=== PATIENT | female | born 1965 | race Caucasian/White ===

== ENCOUNTER 2017-01-24 20:42 | Emergency (ER) | payer SELFPAY ==
[~2017-01-24] VITALS: Ht 160 cm; Wt 64.0 kg
[~2017-01-24 20:42] MED LIST: FOLI1 PO; QUET200T PO; TRAZ-147 PO
[2017-01-24 21:03] LABS: BASOPHILS # (AUTO) 0.04 K/uL (0.00-0.20); BASOPHILS % (AUTO) 0.6 % (0.0-2.0); EOSINOPHILS # (AUTO) 0.28 K/uL (0.00-0.70); HEMATOCRIT 34.4 % (36-46); HEMOGLOBIN 11.1 g/dL (12.0-16.0); LYMPHOCYTES % (AUTO) 33.8 % (22.0-44.0); MEAN CORPUSCULAR HEMOGLOBIN 26.1 pg (26.0-34.0); MEAN CORPUSCULAR HGB CONC 32.4 G/dL (31.0-37.0); MEAN CORPUSCULAR VOLUME 81 fL (80-100); MONOCYTES # (AUTO) 0.3 K/uL (0.1-1.0); MONOCYTES % (AUTO) 5.6 % (2.0-9.0); NEUTROPHILS # (AUTO) 3.3 K/uL (1.8-7.7); NEUTROPHILS % (AUTO) 55.2 % (40.0-70.0); PLATELET COUNT (AUTO) 362 K/uL (150-450); RED BLOOD CELL COUNT(AUTO) 4.27 MIL/uL (4.00-5.20); RED CELL DISTRIBUTION WIDTH 16.9 % (11.5-14.5); WHITE BLOOD COUNT (AUTO) 5.9 K/uL (4.5-11.0)
[2017-01-24 21:16] LABS: ANION GAP 8 mmol/L (8-16); CALCIUM, TOTAL 8.5 mg/dL (8.8-10.5); CARBON DIOXIDE 26 mmol/L (22-29); CHLORIDE 108 mmol/L (98-107); CREATININE 0.69 mg/dL (0.60-1.30); GLOMERULAR FILTR. RATE CALC > 60 mL/min (>60); POTASSIUM 3.6 mmol/L (3.5-5.1); SODIUM SERUM 142 mmol/L (136-145); UREA NITROGEN, BLOOD 17 mg/dL (7-18)
[2017-01-24 21:21] LABS: ALANINE AMINOTRANSFERASE 25 U/L (12-78); ASPARTATE AMINOTRANSFERASE 16 U/L (15-37); BILIRUBIN,TOTAL 0.2 mg/dL (0.1-1.0); TOTAL PROTEIN, SERUM 6.9 g/dL (6.4-8.2)
[2017-01-25 03:18] VITALS: BP 110/64
== END 2017-01-25 03:31 | disposition home or self-care (01) ==
LOC: EMS 20:43
DX: F41.9 Anxiety disorder, unspecified (principal); F25.9 Schizoaffective disorder, unspecified; R44.0 Auditory hallucinations; F15.10 Other stimulant abuse, uncomplicated; F17.210 Nicotine dependence, cigarettes, uncomplicated; I10 Essential (primary) hypertension; Z59.0 Homelessness; Z98.84 Bariatric surgery status
CPT/HCPCS: 36415; 80053; 80307; 85025; 99284; 99406; G0480

== ENCOUNTER 2018-07-18 12:13 | Inpatient (IN) | payer MEDICAID ==
[~2018-07-18] VITALS: Ht 154.9 cm; Wt 70.3 kg
[~2018-07-18 12:13] MED LIST changes: -TRAZ-147 PO; +TRAZ-220 PO
[2018-07-18 15:15] LABS: BASOPHILS % (AUTO) 1.1 % (0.0-2.0); EOSINOPHILS % (AUTO) 3.1 % (1.0-6.0); HEMATOCRIT 31.9 % (36-46); HEMOGLOBIN 10.2 g/dL (12.0-16.0); LYMPHOCYTES # (AUTO) 1.8 K/uL (1.0-4.8); LYMPHOCYTES % (AUTO) 23.8 % (22.0-44.0); MEAN CORPUSCULAR HEMOGLOBIN 24.2 pg (26.0-34.0); MEAN CORPUSCULAR VOLUME 76 fL (80-100); MONOCYTES # (AUTO) 0.5 K/uL (0.1-1.0); MONOCYTES % (AUTO) 7.2 % (2.0-9.0); NEUTROPHILS # (AUTO) 4.9 K/uL (1.8-7.7); NEUTROPHILS % (AUTO) 64.8 % (40.0-70.0); PLATELET COUNT (AUTO) 450 K/uL (150-450); RED BLOOD CELL COUNT(AUTO) 4.22 MIL/uL (4.00-5.20)
[2018-07-18 15:18] LABS: ANION GAP 10 mmol/L (8-16); CALCIUM, TOTAL 8.6 mg/dL (8.8-10.5); CARBON DIOXIDE 25 mmol/L (22-29); CHLORIDE 104 mmol/L (98-107); CREATININE 0.75 mg/dL (0.60-1.30); GLOMERULAR FILTR. RATE CALC > 60 mL/min (>60); GLUCOSE,RANDOM 94 mg/dL (70-110); POTASSIUM 3.7 mmol/L (3.5-5.1); SODIUM SERUM 139 mmol/L (136-145); UREA NITROGEN, BLOOD 15 mg/dL (7-18)
[2018-07-18 15:25] LABS: ALANINE AMINOTRANSFERASE 20 U/L (12-78); ALBUMIN 3.5 g/dL (3.4-5.0); ALKALINE PHOSPHATASE 83 U/L (46-116); ASPARTATE AMINOTRANSFERASE 15 U/L (15-37); BILIRUBIN,TOTAL 0.3 mg/dL (0.1-1.0); TOTAL PROTEIN, SERUM 7.4 g/dL (6.4-8.2)
[2018-07-18] MEDS ORDERED: DiphenhydrAMINE HCL 50 MG/ML VIAL IM ONE (15:30)
[2018-07-18] MEDS ORDERED: LORazepam 2 MG/ML VIAL IM ONE (15:30)
[2018-07-18] MEDS ORDERED: HALOPERIDOL LACTATE 5 MG/ML VIAL IM ONE (15:30)
[2018-07-18 15:44] LABS: THYROID STIMULATING HORMONE 1.35 uIU/mL (0.36-3.74)
[2018-07-18] MEDS ORDERED: HALOPERIDOL 5 MG TABLET PO PRN (16:00)
[2018-07-18] MEDS ORDERED: LORazepam 2 MG TABLET PO PRN (16:00)
[2018-07-18 16:24] LABS: PLATELET MORPHOLOGY COMMENT INCREASED
[2018-07-19 08:52] VITALS: BP 133/77
[2018-07-19 09:11] VITALS: BP 133/77
[2018-07-19] MEDS ORDERED: PNEUMOCOCCAL VACCINE POLYVALENT 0.5 ML VIAL [PPSV23] IM ONE (11:30)
[2018-07-19 16:38] VITALS: BP 132/68
[2018-07-19 16:40] VITALS: BP 132/68
[2018-07-19] MEDS: ZOLPIDEM TARTRATE 10 MG TABLET PO PRN (21:09)
[2018-07-19 21:53] VITALS: BP 106/67
[2018-07-20 00:55] VITALS: BP 128/79
[2018-07-20 08:58] LABS: CHOL/HDL RATIO 2.8 (3.9-5.7)
[2018-07-20 09:18] VITALS: BP 120/61
[2018-07-20] MEDS: QUEtiapine FUMARATE 100 MG TABLET PO SCH (11:30)
[2018-07-20 19:51] VITALS: BP 117/74
[2018-07-20] MEDS: TraZODone HCL 100 MG TABLET PO SCH (20:31)
[2018-07-20] MEDS: QUEtiapine FUMARATE 200 MG TABLET PO SCH (20:42)
[2018-07-20] MEDS ORDERED: TraZODone HCL 100 MG TABLET PO SCH (21:00)
[2018-07-21 04:28] VITALS: BP 122/73
[2018-07-21 08:29] VITALS: BP 117/67
[2018-07-21] MEDS: QUEtiapine FUMARATE 100 MG TABLET PO SCH (09:00)
[2018-07-21 16:10] VITALS: BP 128/78
[2018-07-21] MEDS: QUEtiapine FUMARATE 200 MG TABLET PO SCH (20:18)
[2018-07-21] MEDS: ZOLPIDEM TARTRATE 10 MG TABLET PO PRN (20:18)
[2018-07-21] MEDS: TraZODone HCL 100 MG TABLET PO SCH (20:18)
[2018-07-22 03:56] VITALS: BP 114/72
[2018-07-22 08:33] VITALS: BP 136/82
[2018-07-22] MEDS: QUEtiapine FUMARATE 100 MG TABLET PO SCH (08:44)
[2018-07-22] MEDS ORDERED: MAGNESIUM HYDROXIDE SUSPENSION 30 ML UDCUP PO PRN (09:00)
[2018-07-22] MEDS: DOCUSATE SODIUM 100 MG CAPSULE PO SCH ×2 (09:15→17:00)
[2018-07-22] MEDS: OLANZapine 10 MG TABLET PO SCH (16:24)
[2018-07-22 17:11] VITALS: BP 113/66
[2018-07-22] MEDS: TraZODone HCL 100 MG TABLET PO SCH (20:30)
[2018-07-23 00:30] VITALS: BP 126/78
[2018-07-23] MEDS: DOCUSATE SODIUM 100 MG CAPSULE PO SCH (08:36)
[2018-07-23] MEDS: OLANZapine 10 MG TABLET PO SCH (08:36)
[2018-07-23] MEDS ORDERED: DOCU-119 PO (10:35)
[2018-07-23] MEDS ORDERED: OLAN10TA20 PO (10:35)
== END 2018-07-23 13:53 | disposition left against medical advice (07) | DRG 750 ==
LOC: EMS 12:13 → B2S 07-19 06:30 → B3A 07-19 10:56
PROVIDERS: ADMIT Psychiatry & Neurology Psychiatry; ATTEND Psychiatry & Neurology Psychiatry
DX: F25.0 Schizoaffective disorder, bipolar type (principal); Z78.1 Physical restraint status; D64.9 Anemia, unspecified; M54.9 Dorsalgia, unspecified; F17.210 Nicotine dependence, cigarettes, uncomplicated; F15.10 Other stimulant abuse, uncomplicated; R45.87 Impulsiveness; F12.90 Cannabis use, unspecified, uncomplicated; Z82.49 Family history of ischemic heart disease and other diseases of the circulatory system; Z98.84 Bariatric surgery status; Z59.0 Homelessness
CPT/HCPCS: 84443; 96372; 99291; G0480; J1200; J1630; J2060

== ENCOUNTER 2018-10-07 20:19 | Emergency (ER) | payer MEDICAID, OTHER ==
[~2018-10-07] VITALS: Ht 160 cm; Wt 63.0 kg
[~2018-10-07 20:19] MED LIST changes: +DOCU-119 PO; -FOLI1 PO; +OLAN10TA20 PO; -QUET200T PO
[2018-10-07 20:56] LABS: APPEARANCE,URINE CLEAR (CLEAR); BILIRUBIN,URINE NEGATIVE (NEGATIVE); GLUCOSE, URINE (UA) NEGATIVE (NEGATIVE); KETONES,URINE NEGATIVE (NEGATIVE); LEUKOCYTE ESTERASE ,URINE TRACE (NEGATIVE); NITRATE,URINE NEGATIVE (NEGATIVE); OCCULT BLOOD,URINE NEGATIVE (NEGATIVE); PH,URINE 5.5 (5.0-8.0); PROTEIN,URINE NEGATIVE (NEGATIVE)
[2018-10-07 21:02] LABS: AMPHET/METH SCREEN,URINE NEGATIVE (NEGATIVE); BARBITURATE SCREEN, URINE NEGATIVE (NEGATIVE); CANNABINOID SCREEN,URINE NEGATIVE (NEGATIVE); COCAINE SCREEN,URINE NEGATIVE (NEGATIVE); METHADONE SCREEN, URINE NEGATIVE (NEGATIVE); OPIATE SCREEN,URINE NEGATIVE (NEGATIVE)
[2018-10-07 21:03] LABS: PHENCYCLIDINE SCREEN,URINE NEGATIVE (NEGATIVE)
[2018-10-07 21:05] LABS: BACTERIA,URINE None Seen /HPF (None Seen); RBC,URINE None Seen /HPF (0-2); SQUAMOUS EPITHELIAL CELL,UR Rare /LPF (None Seen); WBC,URINE 0-2 /HPF (0-5)
[2018-10-07 21:12] LABS: BENZODIAZEPINES SCREEN,URINE NEGATIVE (NEGATIVE)
[2018-10-07] MEDS: OLANZapine 5 MG TABLET PO ONE (23:05)
[2018-10-07 23:19] VITALS: BP 133/80
== END 2018-10-07 23:35 | disposition home or self-care (01) ==
LOC: EMS 20:20
DX: F20.0 Paranoid schizophrenia (principal); F19.90 Other psychoactive substance use, unspecified, uncomplicated; F32.9 Major depressive disorder, single episode, unspecified; F17.210 Nicotine dependence, cigarettes, uncomplicated; Z59.0 Homelessness
CPT/HCPCS: 99406

== ENCOUNTER 2019-07-18 11:20 | Emergency (ER) | payer MEDICAID, OTHER ==
[~2019-07-18] VITALS: Ht 160 cm; Wt 72.7 kg
[~2019-07-18 11:20] MED LIST changes: -TRAZ-220 PO; +TRAZ-257 PO
[2019-07-18 11:39] LABS: GLUCOSE,POINT OF CARE 124 MG/DL (70-110)
[2019-07-18 12:00] LABS: BASOPHILS % (AUTO) 1.1 % (0.0-2.0); HEMATOCRIT 38.7 % (36-46); HEMOGLOBIN 12.5 g/dL (12.0-16.0); LYMPHOCYTES # (AUTO) 1.4 K/uL (1.0-4.8); LYMPHOCYTES % (AUTO) 16.4 % (22.0-44.0); MEAN CORPUSCULAR HEMOGLOBIN 25.5 pg (26.0-34.0); MEAN CORPUSCULAR HGB CONC 32.4 G/dL (31.0-37.0); MEAN CORPUSCULAR VOLUME 79 fL (80-100); MONOCYTES # (AUTO) 0.5 K/uL (0.1-1.0); MONOCYTES % (AUTO) 5.5 % (2.0-9.0); NEUTROPHILS # (AUTO) 6.5 K/uL (1.8-7.7); PLATELET COUNT (AUTO) 421 K/uL (150-450); RED BLOOD CELL COUNT(AUTO) 4.92 MIL/uL (4.00-5.20); RED CELL DISTRIBUTION WIDTH 15.1 % (11.5-14.5)
[2019-07-18 12:10] LABS: ANION GAP 9 mmol/L (8-16); CALCIUM, TOTAL 9.3 mg/dL (8.8-10.5); CARBON DIOXIDE 26 mmol/L (22-29); CHLORIDE 103 mmol/L (98-107); CREATININE 0.86 mg/dL (0.60-1.30); GLOMERULAR FILTR. RATE CALC > 60 mL/min (>60); GLUCOSE,RANDOM 109 mg/dL (70-110); POTASSIUM 3.9 mmol/L (3.5-5.1); SODIUM SERUM 138 mmol/L (136-145); UREA NITROGEN, BLOOD 18 mg/dL (7-18)
[2019-07-18 12:16] LABS: ALANINE AMINOTRANSFERASE 29 U/L (12-78); ALBUMIN 4.1 g/dL (3.4-5.0); ALKALINE PHOSPHATASE 109 U/L (46-116); ASPARTATE AMINOTRANSFERASE 20 U/L (15-37); BILIRUBIN,TOTAL 0.6 mg/dL (0.1-1.0); TOTAL PROTEIN, SERUM 8.8 g/dL (6.4-8.2)
[2019-07-18 12:42] LABS: HCG,QUANTITATIVE 2 mIU/mL (0-6)
[2019-07-18 13:10] LABS: AMPHET/METH SCREEN,URINE POSITIVE (NEGATIVE); BARBITURATE SCREEN, URINE NEGATIVE (NEGATIVE); BENZODIAZEPINES SCREEN,URINE NEGATIVE (NEGATIVE); CANNABINOID SCREEN,URINE NEGATIVE (NEGATIVE); COCAINE SCREEN,URINE NEGATIVE (NEGATIVE); METHADONE SCREEN, URINE NEGATIVE (NEGATIVE); OPIATE SCREEN,URINE NEGATIVE (NEGATIVE)
[2019-07-18 13:11] LABS: PHENCYCLIDINE SCREEN,URINE NEGATIVE (NEGATIVE)
[2019-07-18] MEDS ORDERED: HALOPERIDOL 5 MG TABLET PO ONE (13:45)
[2019-07-18 14:01] VITALS: BP 147/89
== END 2019-07-18 14:03 | disposition home or self-care (01) ==
LOC: EMS 11:22
DX: F20.9 Schizophrenia, unspecified (principal); F32.9 Major depressive disorder, single episode, unspecified; F15.10 Other stimulant abuse, uncomplicated; F17.210 Nicotine dependence, cigarettes, uncomplicated; Z59.0 Homelessness; Z98.890 Other specified postprocedural states
CPT/HCPCS: 36415; 80053; 80307; 82962; 84702; 85025; 99284; G0480

== ENCOUNTER 2019-10-26 18:38 | Inpatient (IN) | payer MEDICAID ==
[~2019-10-26] VITALS: Ht 154.9 cm; Wt 69.4 kg
[2019-10-26] MEDS ORDERED: BUPR75 PO (19:12)
[2019-10-26] MEDS ORDERED: TRAZ-252 PO (19:12)
[2019-10-26] MEDS ORDERED: ARIP5TAB8 PO (19:12)
[2019-10-26 19:39] VITALS: BP 131/84
[2019-10-26] MEDS ORDERED: INFLUENZA VIRUS VACCINE QVS 2019-20 (3YR+)/PF 60 MCG/0.5 ML SYRINGE IM ONE (20:15)
[2019-10-26] MEDS: LORazepam 2 MG TABLET PO PRN (23:35)
[2019-10-26] MEDS: ZOLPIDEM TARTRATE 10 MG TABLET PO PRN (23:35)
[2019-10-27] VITALS: BP 122/80
[2019-10-27] MEDS ORDERED: PETROLATUM,WHITE 28 GM JELLY TP PRN (05:30)
[2019-10-27] MEDS ORDERED: IBUPROFEN 600 MG TABLET PO PRN (05:30)
[2019-10-27] MEDS ORDERED: ACETAMINOPHEN 325 MG TABLET PO PRN (05:30)
[2019-10-27] MEDS ORDERED: MAGNESIUM HYDROXIDE SUSPENSION 30 ML UDCUP PO PRN (05:30)
[2019-10-27] MEDS ORDERED: ONDANSETRON HCL 4 MG TABLET PO PRN (05:30)
[2019-10-27] MEDS ORDERED: MAG HYDROX/AL HYDROX/SIMETH ES 30 ML SUSPENSION UDCUP PO PRN (05:30)
[2019-10-27] MEDS ORDERED: LOPERAMIDE HCL 2 MG CAPSULE PO PRN (05:30)
[2019-10-27] MEDS ORDERED: BACITRACIN 28.4 GM OINTMENT TP PRN (05:30)
[2019-10-27] MEDS ORDERED: BENZOCAINE/MENTHOL LOZENGE MM PRN (05:30)
[2019-10-27] MEDS ORDERED: ALBUTEROL SULFATE HFA 90 MCG/PUFF 8 GM INHALER IH PRN (05:30)
[2019-10-27] MEDS ORDERED: CloNIDine HCL 0.1 MG TABLET PO PRN (05:30)
[2019-10-27 08:25] LABS: BASOPHILS % (AUTO) 1.1 % (0.0-2.0); HEMATOCRIT 33.6 % (36-46); HEMOGLOBIN 10.8 g/dL (12.0-16.0); LYMPHOCYTES # (AUTO) 1.6 K/uL (1.0-4.8); LYMPHOCYTES % (AUTO) 27.5 % (22.0-44.0); MEAN CORPUSCULAR HEMOGLOBIN 25.1 pg (26.0-34.0); MEAN CORPUSCULAR HGB CONC 32.1 G/dL (31.0-37.0); MEAN CORPUSCULAR VOLUME 78 fL (80-100); MONOCYTES # (AUTO) 0.3 K/uL (0.1-1.0); MONOCYTES % (AUTO) 4.9 % (2.0-9.0); NEUTROPHILS # (AUTO) 3.4 K/uL (1.8-7.7); NEUTROPHILS % (AUTO) 60.5 % (40.0-70.0); PLATELET COUNT (AUTO) 346 K/uL (150-450); RED CELL DISTRIBUTION WIDTH 15.6 % (11.5-14.5)
[2019-10-27 08:31] VITALS: BP 104/66
[2019-10-27] MEDS: DOCUSATE SODIUM 100 MG CAPSULE PO SCH (09:00)
[2019-10-27] MEDS: OMEPRAZOLE 20 MG CAPSULE PO SCH (09:00)
[2019-10-27] MEDS: LORazepam 2 MG TABLET PO PRN ×2 (09:14→20:39)
[2019-10-27] MEDS: HALOPERIDOL 5 MG TABLET PO PRN ×2 (09:14→20:39)
[2019-10-27 09:27] LABS: HEMOGLOBIN A1C 6.2 % (3.8-5.6)
[2019-10-27 09:45] LABS: ALANINE AMINOTRANSFERASE 18 U/L (12-78); ALBUMIN 3.5 g/dL (3.4-5.0); ALKALINE PHOSPHATASE 98 U/L (46-116); ANION GAP 10 mmol/L (8-16); ASPARTATE AMINOTRANSFERASE 13 U/L (15-37); BILIRUBIN,TOTAL 0.4 mg/dL (0.1-1.0); CALCIUM, TOTAL 8.9 mg/dL (8.8-10.5); CARBON DIOXIDE 25 mmol/L (22-29); CHLORIDE 106 mmol/L (98-107); CHOL/HDL RATIO 2.7 (3.9-5.7); CHOLESTEROL 150 mg/dL (131-200); CREATININE 0.85 mg/dL (0.60-1.30); FREE T4 (FREE THYROXINE) 0.99 ng/dL (0.76-1.46); GLOMERULAR FILTR. RATE CALC > 60 mL/min (>60); GLUCOSE,RANDOM 119 mg/dL (70-110); HDL CHOLESTEROL 56 mg/dL (40-60); LDL CHOL (CALC.) 78 mg/dL (0-130); POTASSIUM 4.3 mmol/L (3.5-5.1); SODIUM SERUM 141 mmol/L (136-145); THYROID STIMULATING HORMONE 1.51 uIU/mL (0.36-3.74); TOTAL PROTEIN, SERUM 7.1 g/dL (6.4-8.2); TRIGLYCERIDES 82 mg/dL (15-150); UREA NITROGEN, BLOOD 16 mg/dL (7-18)
[2019-10-27 16:17] VITALS: BP 142/79
[2019-10-27] MEDS: TraZODone HCL 50 MG TABLET PO SCH (20:39)
[2019-10-28] MEDS: ZOLPIDEM TARTRATE 10 MG TABLET PO PRN ×2 (02:34→20:44)
[2019-10-28] MEDS: LORazepam 2 MG TABLET PO PRN ×3 (02:34→16:50)
[2019-10-28 02:35] VITALS: BP 131/83
[2019-10-28 04:21] VITALS: BP 101/84
[2019-10-28] MEDS: BuPROPion HCL 75 MG TABLET PO SCH (09:04)
[2019-10-28] MEDS: ARIPiprazole 15 MG TABLET PO SCH (09:04)
[2019-10-28] MEDS: MULTIVITAMINS WITH MINERALS, THERAPEUTIC TABLET PO SCH (09:04)
[2019-10-28] MEDS: DOCUSATE SODIUM 100 MG CAPSULE PO SCH (09:09)
[2019-10-28] MEDS: OMEPRAZOLE 20 MG CAPSULE PO SCH (09:10)
[2019-10-28 16:23] VITALS: BP 120/65
[2019-10-28] MEDS: HALOPERIDOL 5 MG TABLET PO PRN (16:50)
[2019-10-28] MEDS: TraZODone HCL 50 MG TABLET PO SCH (20:44)
[2019-10-29 03:11] VITALS: BP 110/62
[2019-10-29 03:28] VITALS: BP 102/60
[2019-10-29 08:33] VITALS: BP 104/57
[2019-10-29] MEDS: MULTIVITAMINS WITH MINERALS, THERAPEUTIC TABLET PO SCH (08:52)
[2019-10-29] MEDS: OMEPRAZOLE 20 MG CAPSULE PO SCH (08:52)
[2019-10-29] MEDS: DOCUSATE SODIUM 100 MG CAPSULE PO SCH (08:52)
[2019-10-29] MEDS: ARIPiprazole 15 MG TABLET PO SCH (08:52)
[2019-10-29] MEDS: BuPROPion HCL 75 MG TABLET PO SCH (08:52)
[2019-10-29] MEDS: LORazepam 2 MG TABLET PO PRN (08:58)
[2019-10-29 16:35] VITALS: BP 116/69
[2019-10-29] MEDS: TraZODone HCL 50 MG TABLET PO SCH (20:50)
[2019-10-30 02:20] VITALS: BP 109/63
[2019-10-30] MEDS: MULTIVITAMINS WITH MINERALS, THERAPEUTIC TABLET PO SCH (08:51)
[2019-10-30] MEDS: ARIPiprazole 15 MG TABLET PO SCH (08:51)
[2019-10-30] MEDS: OMEPRAZOLE 20 MG CAPSULE PO SCH (08:51)
[2019-10-30] MEDS: DOCUSATE SODIUM 100 MG CAPSULE PO SCH (08:51)
[2019-10-30] MEDS: BuPROPion HCL 75 MG TABLET PO SCH (08:52)
[2019-10-30 14:10] VITALS: BP 123/71
[2019-10-30 16:31] VITALS: BP 119/81
[2019-10-30] MEDS: TraZODone HCL 50 MG TABLET PO SCH (20:48)
[2019-10-31 06:27] VITALS: BP 108/72
[2019-10-31 08:18] VITALS: BP 111/63
[2019-10-31] MEDS: BuPROPion HCL 75 MG TABLET PO SCH (09:11)
[2019-10-31] MEDS: ARIPiprazole 15 MG TABLET PO SCH (09:11)
[2019-10-31] MEDS: MULTIVITAMINS WITH MINERALS, THERAPEUTIC TABLET PO SCH (09:11)
[2019-10-31] MEDS: DOCUSATE SODIUM 100 MG CAPSULE PO SCH (09:11)
[2019-10-31] MEDS: OMEPRAZOLE 20 MG CAPSULE PO SCH (09:11)
[2019-10-31] MEDS: LORazepam 2 MG TABLET PO PRN (09:13)
[2019-10-31 17:35] VITALS: BP 124/75
[2019-10-31] MEDS: TraZODone HCL 50 MG TABLET PO SCH (21:12)
[2019-11-01 04:49] VITALS: BP 120/65
[2019-11-01] MEDS: ARIPiprazole 15 MG TABLET PO SCH (09:05)
[2019-11-01] MEDS: LORazepam 2 MG TABLET PO PRN (09:05)
[2019-11-01] MEDS: MULTIVITAMINS WITH MINERALS, THERAPEUTIC TABLET PO SCH (09:05)
[2019-11-01] MEDS: OMEPRAZOLE 20 MG CAPSULE PO SCH (09:05)
[2019-11-01] MEDS: DOCUSATE SODIUM 100 MG CAPSULE PO SCH (09:06)
[2019-11-01] MEDS: BuPROPion HCL 75 MG TABLET PO SCH (09:06)
[2019-11-01 09:26] VITALS: BP 134/72
[2019-11-01 16:36] VITALS: BP 119/71
[2019-11-01] MEDS: TraZODone HCL 50 MG TABLET PO SCH (21:04)
[2019-11-02 01:23] VITALS: BP 121/76
[2019-11-02] MEDS: OMEPRAZOLE 20 MG CAPSULE PO SCH (08:50)
[2019-11-02] MEDS: DOCUSATE SODIUM 100 MG CAPSULE PO SCH (08:50)
[2019-11-02] MEDS: ARIPiprazole 15 MG TABLET PO SCH (08:50)
[2019-11-02] MEDS: MULTIVITAMINS WITH MINERALS, THERAPEUTIC TABLET PO SCH (08:50)
[2019-11-02] MEDS: BuPROPion HCL 75 MG TABLET PO SCH (08:50)
[2019-11-02 16:17] VITALS: BP 115/75
[2019-11-02] MEDS: TraZODone HCL 50 MG TABLET PO SCH (20:57)
[2019-11-03 02:51] VITALS: BP 104/66
[2019-11-03 08:11] VITALS: BP 103/53
[2019-11-03] MEDS: DOCUSATE SODIUM 100 MG CAPSULE PO SCH (09:00)
[2019-11-03] MEDS: BuPROPion HCL 75 MG TABLET PO SCH (09:38)
[2019-11-03] MEDS: ARIPiprazole 15 MG TABLET PO SCH (09:39)
[2019-11-03] MEDS: OMEPRAZOLE 20 MG CAPSULE PO SCH (09:39)
[2019-11-03] MEDS: MULTIVITAMINS WITH IRON TABLET PO SCH (09:42)
[2019-11-03] MEDS: TraZODone HCL 50 MG TABLET PO SCH (20:33)
[2019-11-03 21:42] VITALS: BP 121/75
[2019-11-04 02:52] VITALS: BP 110/66
[2019-11-04 08:38] VITALS: BP 100/60
[2019-11-04] MEDS: DOCUSATE SODIUM 100 MG CAPSULE PO SCH ×2 (10:00→10:02)
[2019-11-04] MEDS: OMEPRAZOLE 20 MG CAPSULE PO SCH (10:02)
[2019-11-04] MEDS: ARIPiprazole 15 MG TABLET PO SCH (10:02)
[2019-11-04] MEDS: MULTIVITAMINS WITH IRON TABLET PO SCH (10:02)
[2019-11-04] MEDS: BuPROPion HCL 75 MG TABLET PO SCH (10:09)
[2019-11-04 16:38] VITALS: BP 128/72
[2019-11-04] MEDS: TraZODone HCL 50 MG TABLET PO SCH (21:15)
[2019-11-05 04:38] VITALS: BP 123/70
[2019-11-05] MEDS: MULTIVITAMINS WITH IRON TABLET PO SCH (08:19)
[2019-11-05] MEDS: OMEPRAZOLE 20 MG CAPSULE PO SCH (08:19)
[2019-11-05] MEDS: BuPROPion HCL 75 MG TABLET PO SCH (08:19)
[2019-11-05] MEDS: ARIPiprazole 15 MG TABLET PO SCH (08:19)
[2019-11-05 08:32] VITALS: BP 96/60
== END 2019-11-05 13:00 | disposition home or self-care (01) | DRG 750 ==
LOC: B3A 19:24
PROVIDERS: ADMIT Psychiatry & Neurology Psychiatry; ATTEND Psychiatry & Neurology Psychiatry
DX: F25.9 Schizoaffective disorder, unspecified (principal); R45.851 Suicidal ideations; Z59.0 Homelessness; D50.9 Iron deficiency anemia, unspecified; F15.10 Other stimulant abuse, uncomplicated; F19.10 Other psychoactive substance abuse, uncomplicated; I10 Essential (primary) hypertension; Z72.0 Tobacco use; K21.9 Gastro-esophageal reflux disease without esophagitis; M54.5 Low back pain; Z98.84 Bariatric surgery status; K59.00 Constipation, unspecified; Z28.21 Immunization not carried out because of patient refusal
CPT/HCPCS: 83036; 84439; 84443

== ENCOUNTER 2024-06-20 07:50 | Inpatient (IN) | payer MEDICAID ==
[~2024-06-20] VITALS: Ht 154.9 cm; Wt 70.4 kg
[~2024-06-20 07:50] MED LIST changes: +ARIP5TAB37 PO; +BUPR-344 PO; -DOCU-119 PO; -OLAN10TA20 PO; +TRAZ-252 PO; -TRAZ-257 PO
[2024-06-20 10:38] VITALS: BP 141/84; PULSE 80; RESP 19; TEMP 97.8; O2SAT 98
[2024-06-20] MEDS ORDERED: PROMETHAZINE HCL 25 MG TABLET PO PRN (11:30)
[2024-06-20] MEDS ORDERED: LOPERAMIDE HCL 2 MG CAPSULE PO PRN (11:30)
[2024-06-20] MEDS ORDERED: HydrOXYzine PAMOATE 50 MG CAPSULE PO PRN (11:30)
[2024-06-20] MEDS ORDERED: MAGNESIUM HYDROXIDE SUSPENSION 30 ML UDCUP PO PRN (11:30)
[2024-06-20] MEDS ORDERED: ZOLPIDEM TARTRATE 10 MG TABLET PO PRN (11:30)
[2024-06-20] MEDS ORDERED: OLANZapine 5 MG RAPDIS TABLET PO PRN (11:30)
[2024-06-20] MEDS ORDERED: LORazepam 2 MG TABLET PO PRN (11:30)
[2024-06-20] MEDS ORDERED: MAG HYDROX/ALUMINUM HYD/SIMETH ES 30 ML SUSPENSION UDCUP PO PRN (11:30)
[2024-06-20] MEDS: THIAMINE 100 MG TABLET PO SCH (18:09)
[2024-06-20] MEDS ORDERED: NICOTINE 14 MG/24 HOUR PATCH TD PRN (18:45)
[2024-06-20] MEDS ORDERED: NICOTINE 7 MG/24 HOUR PATCH TD PRN (18:45)
[2024-06-20 20:20] VITALS: BP 104/59; PULSE 76; RESP 18; TEMP 97.9; O2SAT 98
[2024-06-20] MEDS: OLANZapine 5 MG RAPDIS TABLET PO SCH (20:55)
[2024-06-20] MEDS: MELATONIN 5 MG TABLET PO SCH (20:56)
[2024-06-21] MEDS: FOLIC ACID 1 MG TABLET PO SCH (08:10)
[2024-06-21] MEDS: NALTREXONE HCL 50 MG TABLET PO SCH (08:10)
[2024-06-21] MEDS: MULTIVITAMINS WITH MINERALS, THERAPEUTIC TABLET PO SCH (08:11)
[2024-06-21] MEDS: FLUoxetine HCL 20 MG CAPSULE PO SCH (08:11)
[2024-06-21 08:39] VITALS: BP 104/61; PULSE 58; RESP 19; TEMP 97.9; O2SAT 98
[2024-06-21 09:35] LABS: BASOPHILS % (AUTO) 0.4 % (0.0-2.0); EOSINOPHILS % (AUTO) 3.8 % (1.0-6.0); HEMATOCRIT 36.5 % (36-46); HEMOGLOBIN 11.9 g/dL (12.0-16.0); LYMPHOCYTES # (AUTO) 1.6 K/uL (1.0-4.8); LYMPHOCYTES % (AUTO) 37.2 % (22.0-44.0); MEAN CORPUSCULAR HEMOGLOBIN 27.4 pg (26.0-34.0); MEAN CORPUSCULAR HGB CONC 32.6 G/dL (31.0-37.0); MEAN CORPUSCULAR VOLUME 84 fL (80-100); MONOCYTES # (AUTO) 0.3 K/uL (0.1-1.0); MONOCYTES % (AUTO) 7.9 % (2.0-9.0); NEUTROPHILS # (AUTO) 2.2 K/uL (1.8-7.7); NEUTROPHILS % (AUTO) 50.7 % (40.0-70.0); PLATELET COUNT (AUTO) 329 K/uL (150-450); RED BLOOD CELL COUNT(AUTO) 4.35 MIL/uL (4.00-5.20); RED CELL DISTRIBUTION WIDTH 14.5 % (11.5-14.5); WHITE BLOOD COUNT (AUTO) 4.3 K/uL (4.5-11.0)
[2024-06-21 09:46] LABS: HEMOGLOBIN A1C 6.4 % (3.8-5.6)
[2024-06-21 09:59] LABS: ALANINE AMINOTRANSFERASE 16 U/L (12-78); ALBUMIN 3.3 g/dL (3.4-5.0); ALKALINE PHOSPHATASE 69 U/L (46-116); ANION GAP 5 mmol/L (8-16); ASPARTATE AMINOTRANSFERASE 15 U/L (15-37); BILIRUBIN,TOTAL 0.4 mg/dL (0.1-1.0); CALCIUM, TOTAL 8.5 mg/dL (8.8-10.5); CARBON DIOXIDE 31 mmol/L (22-29); CHLORIDE 108 mmol/L (98-107); CHOL/HDL RATIO 3.3 (3.9-5.7); CHOLESTEROL 146 mg/dL (131-200); CREATININE 0.81 mg/dL (0.60-1.30); FREE T4 (FREE THYROXINE) 0.94 ng/dL (0.76-1.46); GLOMERULAR FILTR. RATE CALC > 60 mL/min (>60); GLUCOSE,RANDOM 84 mg/dL (70-110); HDL CHOLESTEROL 44 mg/dL (40-60); LDL CHOL (CALC.) 70 mg/dL (0-130); POTASSIUM 4.2 mmol/L (3.5-5.1); SODIUM SERUM 144 mmol/L (136-145); THYROID STIMULATING HORMONE 0.59 uIU/mL (0.36-3.74); TOTAL PROTEIN, SERUM 7.3 g/dL (6.4-8.2); TRIGLYCERIDES 161 mg/dL (15-150); UREA NITROGEN, BLOOD 14 mg/dL (7-18)
[2024-06-21] MEDS: HALOPERIDOL DECANOATE 100 MG/ML VIAL IM ONE (19:00)
[2024-06-21] MEDS: HALOPERIDOL 10 MG TABLET PO SCH (20:31)
[2024-06-21 20:32] VITALS: BP 103/62; PULSE 61; RESP 18; TEMP 97.5; O2SAT 95
[2024-06-22 03:06] LABS: HEPATITIS C AB (EIA) Non Reactive (Non Reactive)
[2024-06-22 08:29] VITALS: BP 110/69; PULSE 69; RESP 18; TEMP 97.6; O2SAT 96
[2024-06-22] MEDS: BuPROPion HCL XL 150 MG ER TABLET PO SCH (09:22)
[2024-06-22 20:21] VITALS: BP 103/62; PULSE 59; RESP 16; TEMP 97.6; O2SAT 96
[2024-06-23 08:28] VITALS: BP 112/69; PULSE 72; RESP 19; TEMP 97.3; O2SAT 97
[2024-06-23 09:08] VITALS: RESP 17
[2024-06-23] MEDS: ACETAMINOPHEN 325 MG TABLET PO PRN (09:08)
[2024-06-23 10:08] VITALS: RESP 16
[2024-06-23] MEDS: HALOPERIDOL 5 MG TABLET PO PRN (16:49)
[2024-06-23] MEDS: TUBERCULIN, PURIFIED PROTEIN DERIVATIVE 5 TU/0.1 ML SYRINGE ID ONE (16:53)
[2024-06-23 20:20] VITALS: BP 104/61; PULSE 69; RESP 16; TEMP 98
[2024-06-24 08:26] VITALS: BP 111/65; PULSE 70; RESP 18; TEMP 97.5; O2SAT 97
[2024-06-24] MEDS: GuaiFENesin/D-METHORPHAN [SUGAR-FREE] 200-20MG/10 ML SYRUP UDCUP PO PRN (16:10)
[2024-06-24] MEDS: INFLUENZA VIRUS VACCINE TVS (6MO+) 2024-25/PF 45 MCG/0.5 ML SYRINGE IM. ONE (16:12)
[2024-06-24] MEDS: HALOPERIDOL 10 MG TABLET PO SCH (20:05)
[2024-06-24 20:23] VITALS: BP 112/58; PULSE 69; RESP 18; TEMP 98.4; O2SAT 95
[2024-06-24 20:40] VITALS: BP 113/72; PULSE 65; RESP 18; TEMP 97.8; O2SAT 96
[2024-06-25 08:22] VITALS: BP 104/61; PULSE 62; RESP 16; TEMP 98.2; O2SAT 97
[2024-06-25 21:40] VITALS: BP 104/68; PULSE 60; RESP 16; TEMP 98; O2SAT 98
[2024-06-26 08:04] VITALS: BP 107/56; PULSE 64; RESP 16; TEMP 96.8; O2SAT 96
[2024-06-26 20:05] VITALS: BP 110/66; PULSE 73; RESP 17; TEMP 97.3; O2SAT 96
[2024-06-27 08:40] VITALS: BP 106/61; PULSE 65; RESP 17; TEMP 97.7; O2SAT 96
[2024-06-27 20:42] VITALS: RESP 17; TEMP 97.5
[2024-06-28 08:18] VITALS: BP 103/62; PULSE 63; RESP 18; TEMP 97.9; O2SAT 98
[2024-06-28] MEDS ORDERED: GABAPENTIN 300 MG CAPSULE PO PRN (11:45)
[2024-06-28] MEDS ORDERED: ESZOPICLONE 3 MG TABLET PO PRN (11:45)
[2024-06-28 20:05] VITALS: BP 132/86; PULSE 69; RESP 17; TEMP 97.6; O2SAT 97
[2024-06-29 08:13] VITALS: BP 114/68; PULSE 61; RESP 18; TEMP 97; O2SAT 96
[2024-06-29 20:26] VITALS: BP 114/72; PULSE 67; RESP 16; TEMP 97.3; O2SAT 97
[2024-06-30 08:22] VITALS: BP 136/82; PULSE 82; RESP 17; TEMP 97.3; O2SAT 98
[2024-06-30 10:10] LABS: PH,URINE DRUG SCREEN 6.5 (5.0-8.0)
[2024-06-30 10:25] LABS: ALCOHOL, URINE DRUG SCREEN NEGATIVE (NEGATIVE); AMPHET/METH SCREEN,URINE NEGATIVE (NEGATIVE); BARBITURATE SCREEN, URINE NEGATIVE (NEGATIVE); BENZODIAZEPINES SCREEN,URINE NEGATIVE (NEGATIVE); CANNABINOID SCREEN,URINE NEGATIVE (NEGATIVE); COCAINE SCREEN,URINE NEGATIVE (NEGATIVE); METHADONE SCREEN, URINE NEGATIVE (NEGATIVE); OPIATE SCREEN,URINE NEGATIVE (NEGATIVE); PHENCYCLIDINE SCREEN,URINE NEGATIVE (NEGATIVE)
[2024-06-30 20:00] VITALS: BP 122/74; PULSE 65; RESP 17; TEMP 98; O2SAT 96
[2024-07-01 08:04] VITALS: BP 138/89; PULSE 89; RESP 17; TEMP 97.8; O2SAT 100
[2024-07-01] MEDS: BuPROPion HCL XL 150 MG ER TABLET PO SCH (08:37)
[2024-07-01] MEDS ORDERED: NALT50TA33 PO (09:21)
[2024-07-01] MEDS ORDERED: HALO100V36 IM (09:21)
[2024-07-01] MEDS ORDERED: MELA5TAB40 PO (09:21)
[2024-07-01] MEDS ORDERED: HALO10TA21 PO (09:21)
[2024-07-01] MEDS ORDERED: BUPR-514 PO (09:21)
[2024-07-05] MEDS ORDERED: HALOPERIDOL DECANOATE 100 MG/ML VIAL IM SCH (09:00)
== END 2024-07-01 12:22 | disposition home or self-care (01) | DRG 750 ==
LOC: B2X 10:05 → B2S 06-25 15:28
PROVIDERS: ADMIT Psychiatry & Neurology Psychiatry; ATTEND Psychiatry & Neurology Psychiatry
PROC: GZHZZZZ Group Psychotherapy (ICD-10-PCS; principal; 2024-06-20)
PROC: GZ58ZZZ Individual Psychotherapy, Cognitive-Behavioral (ICD-10-PCS; 2024-06-20)
DX: F25.9 Schizoaffective disorder, unspecified (principal); E73.9 Lactose intolerance, unspecified; F15.90 Other stimulant use, unspecified, uncomplicated; F32.A Depression, unspecified; K21.9 Gastro-esophageal reflux disease without esophagitis; Z20.822 Contact with and (suspected) exposure to COVID-19; F60.0 Paranoid personality disorder; F17.200 Nicotine dependence, unspecified, uncomplicated; J44.9 Chronic obstructive pulmonary disease, unspecified; Z55.9 Problems related to education and literacy, unspecified; Z98.84 Bariatric surgery status; Z59.00 Homelessness unspecified; Z60.8 Other problems related to social environment; Z63.9 Problem related to primary support group, unspecified; Z65.3 Problems related to other legal circumstances; Z81.8 Family history of other mental and behavioral disorders; Z91.199 Patient's noncompliance with other medical treatment and regimen due to unspecified reason
CPT/HCPCS: 80053; 80061; 80173; 80307; 83036; 84439; 84443; 85025; 86592; 86803; 87340; 90686; J1631

== ENCOUNTER 2024-06-20 11:00 | Emergency (ER) | payer MEDICAID, OTHER ==
[~2024-06-20] VITALS: Ht 154.9 cm; Wt 70.5 kg
[2024-06-20 11:24] LABS: COVID AG,FIA SOURCE NASAL SWAB
[2024-06-20 11:38] VITALS: TEMP 97.8
[2024-06-20 12:34] LABS: SARS-COV2 (COVID) ANTIGEN,FIA Negative (Negative)
[2024-06-20 12:48] LABS: INFLUENZA TYPE A NEGATIVE FOR TYPE A (NEGATIVE); INFLUENZA TYPE B NEGATIVE FOR TYPE B (NEGATIVE)
[2024-06-20 13:03] LABS: BASOPHILS % (AUTO) 0.3 % (0.0-2.0); EOSINOPHILS % (AUTO) 2.1 % (1.0-6.0); HEMATOCRIT 36.5 % (36-46); HEMOGLOBIN 11.9 g/dL (12.0-16.0); LYMPHOCYTES # (AUTO) 1.5 K/uL (1.0-4.8); LYMPHOCYTES % (AUTO) 23.6 % (22.0-44.0); MEAN CORPUSCULAR HEMOGLOBIN 27.3 pg (26.0-34.0); MEAN CORPUSCULAR HGB CONC 32.7 G/dL (31.0-37.0); MEAN CORPUSCULAR VOLUME 83 fL (80-100); MONOCYTES # (AUTO) 0.4 K/uL (0.1-1.0); MONOCYTES % (AUTO) 6.2 % (2.0-9.0); NEUTROPHILS # (AUTO) 4.2 K/uL (1.8-7.7); NEUTROPHILS % (AUTO) 67.8 % (40.0-70.0); PLATELET COUNT (AUTO) 331 K/uL (150-450); RED BLOOD CELL COUNT(AUTO) 4.38 MIL/uL (4.00-5.20); RED CELL DISTRIBUTION WIDTH 14.6 % (11.5-14.5); WHITE BLOOD COUNT (AUTO) 6.2 K/uL (4.5-11.0)
[2024-06-20 13:13] LABS: ANION GAP 4 mmol/L (8-16); CALCIUM, TOTAL 8.8 mg/dL (8.8-10.5); CARBON DIOXIDE 31 mmol/L (22-29); CHLORIDE 104 mmol/L (98-107); CREATININE 0.73 mg/dL (0.60-1.30); GLOMERULAR FILTR. RATE CALC > 60 mL/min (>60); GLUCOSE,RANDOM 93 mg/dL (70-110); POTASSIUM 4.1 mmol/L (3.5-5.1); SODIUM SERUM 139 mmol/L (136-145); UREA NITROGEN, BLOOD 13 mg/dL (7-18)
[2024-06-20 13:19] LABS: ALANINE AMINOTRANSFERASE 17 U/L (12-78); ALBUMIN 3.4 g/dL (3.4-5.0); ALKALINE PHOSPHATASE 73 U/L (46-116); ASPARTATE AMINOTRANSFERASE 17 U/L (15-37); BILIRUBIN,TOTAL 0.4 mg/dL (0.1-1.0); TOTAL PROTEIN, SERUM 7.5 g/dL (6.4-8.2)
[2024-06-20 13:42] LABS: APPEARANCE,URINE CLEAR (CLEAR); BILIRUBIN,URINE NEGATIVE (NEGATIVE); COLOR,URINE YELLOW (YELLOW); GLUCOSE, URINE (UA) NEGATIVE (NEGATIVE); KETONES,URINE NEGATIVE (NEGATIVE); LEUKOCYTE ESTERASE ,URINE TRACE (NEGATIVE); NITRATE,URINE NEGATIVE (NEGATIVE); OCCULT BLOOD,URINE NEGATIVE (NEGATIVE); PROTEIN,URINE TRACE mg/dL (NEGATIVE); SPECIFIC GRAVITIY, URINE 1.028 (1.003-1.030)
[2024-06-20 13:56] LABS: ALCOHOL, URINE DRUG SCREEN NEGATIVE (NEGATIVE); BARBITURATE SCREEN, URINE NEGATIVE (NEGATIVE); BENZODIAZEPINES SCREEN,URINE NEGATIVE (NEGATIVE); CANNABINOID SCREEN,URINE NEGATIVE (NEGATIVE); COCAINE SCREEN,URINE NEGATIVE (NEGATIVE); METHADONE SCREEN, URINE NEGATIVE (NEGATIVE); OPIATE SCREEN,URINE NEGATIVE (NEGATIVE); PHENCYCLIDINE SCREEN,URINE NEGATIVE (NEGATIVE)
[2024-06-20 14:02] LABS: BACTERIA,URINE Few /HPF (None Seen); RBC,URINE None Seen /HPF (0-2); SQUAMOUS EPITHELIAL CELL,UR Few /LPF (None Seen); WBC,URINE 0-2 /HPF (0-5)
[2024-06-20 14:23] LABS: AMPHET/METH SCREEN,URINE NEGATIVE (NEGATIVE)
[2024-06-20 16:25] VITALS: BP 126/84; PULSE 62; RESP 18; O2SAT 100
== END 2024-06-20 17:35 ==
LOC: EMS 11:00
DX: R05.9 Cough, unspecified (principal); R50.9 Fever, unspecified; F20.9 Schizophrenia, unspecified; I10 Essential (primary) hypertension; F32.A Depression, unspecified; F15.90 Other stimulant use, unspecified, uncomplicated; F17.210 Nicotine dependence, cigarettes, uncomplicated; R44.0 Auditory hallucinations; Z98.84 Bariatric surgery status; Z59.00 Homelessness unspecified; Z20.822 Contact with and (suspected) exposure to COVID-19
CPT/HCPCS: 80048; 80076; 80307; 81001; 85025; 87804; 99283; 99406

== ENCOUNTER 2024-07-30 16:26 | Inpatient (IN) | payer MEDICAID, OTHER ==
[~2024-07-30] VITALS: Ht 152.4 cm; Wt 59.0 kg
[~2024-07-30 16:26] MED LIST changes: -ARIP5TAB37 PO; -BUPR-344 PO; +BUPR-514 PO; +HALO100V36 IM; +HALO10TA21 PO; +MELA5TAB40 PO; +NALT50TA33 PO; -TRAZ-252 PO
[2024-07-30 17:05] LABS: COVID AG,FIA SOURCE NASAL SWAB
[2024-07-30 17:05] LABS: BASOPHILS % (AUTO) 0.6 % (0.0-2.0); HEMATOCRIT 36.8 % (36-46); LYMPHOCYTES % (AUTO) 22.6 % (22.0-44.0); MEAN CORPUSCULAR HEMOGLOBIN 27.9 pg (26.0-34.0); MEAN CORPUSCULAR HGB CONC 32.7 G/dL (31.0-37.0); MEAN CORPUSCULAR VOLUME 85 fL (80-100); MONOCYTES # (AUTO) 0.6 K/uL (0.1-1.0); MONOCYTES % (AUTO) 6.5 % (2.0-9.0); NEUTROPHILS % (AUTO) 69.3 % (40.0-70.0); PLATELET COUNT (AUTO) 469 K/uL (150-450); RED BLOOD CELL COUNT(AUTO) 4.31 MIL/uL (4.00-5.20); RED CELL DISTRIBUTION WIDTH 15.5 % (11.5-14.5); WHITE BLOOD COUNT (AUTO) 8.7 K/uL (4.5-11.0)
[2024-07-30 17:15] LABS: ANION GAP 8 mmol/L (8-16); CALCIUM, TOTAL 8.9 mg/dL (8.8-10.5); CARBON DIOXIDE 29 mmol/L (22-29); CHLORIDE 106 mmol/L (98-107); CREATININE 0.71 mg/dL (0.60-1.30); GLOMERULAR FILTR. RATE CALC > 60 mL/min (>60); GLUCOSE,RANDOM 99 mg/dL (70-110); POTASSIUM 3.5 mmol/L (3.5-5.1); SODIUM SERUM 143 mmol/L (136-145); UREA NITROGEN, BLOOD 9 mg/dL (7-18)
[2024-07-30] MEDS ORDERED: LORazepam 2 MG TABLET PO PRN (17:15)
[2024-07-30] MEDS ORDERED: ZOLPIDEM TARTRATE 10 MG TABLET PO PRN (17:15)
[2024-07-30 17:30] LABS: SARS-COV2 (COVID) ANTIGEN,FIA Negative (Negative)
[2024-07-30 17:48] LABS: ALCOHOL, BLOOD (SERUM) < 3 mg/dL (0-10)
[2024-07-30] MEDS: LORazepam 1 MG TABLET PO ONE (17:48)
[2024-07-30] MEDS: HALOPERIDOL 5 MG TABLET PO ONE (17:48)
[2024-07-30 23:21] VITALS: O2SAT 95
[2024-07-31 02:00] VITALS: BP 148/86; PULSE 85; RESP 16; TEMP 97.7; O2SAT 98
[2024-07-31 08:14] VITALS: BP 125/77; PULSE 70; RESP 18; TEMP 97.3; O2SAT 98
[2024-07-31 08:56] LABS: BASOPHILS % (AUTO) 0.5 % (0.0-2.0); EOSINOPHILS % (AUTO) 1.2 % (1.0-6.0); HEMATOCRIT 33.4 % (36-46); HEMOGLOBIN 11.2 g/dL (12.0-16.0); LYMPHOCYTES # (AUTO) 1.2 K/uL (1.0-4.8); LYMPHOCYTES % (AUTO) 17.9 % (22.0-44.0); MEAN CORPUSCULAR HEMOGLOBIN 28.6 pg (26.0-34.0); MEAN CORPUSCULAR HGB CONC 33.5 G/dL (31.0-37.0); MEAN CORPUSCULAR VOLUME 85 fL (80-100); MONOCYTES # (AUTO) 0.3 K/uL (0.1-1.0); MONOCYTES % (AUTO) 4.3 % (2.0-9.0); NEUTROPHILS # (AUTO) 5.3 K/uL (1.8-7.7); NEUTROPHILS % (AUTO) 76.1 % (40.0-70.0); PLATELET COUNT (AUTO) 453 K/uL (150-450); RED BLOOD CELL COUNT(AUTO) 3.92 MIL/uL (4.00-5.20); RED CELL DISTRIBUTION WIDTH 15.4 % (11.5-14.5); WHITE BLOOD COUNT (AUTO) 6.9 K/uL (4.5-11.0)
[2024-07-31 09:22] LABS: ALANINE AMINOTRANSFERASE 30 U/L (12-78); ALBUMIN 2.8 g/dL (3.4-5.0); ALKALINE PHOSPHATASE 85 U/L (46-116); ANION GAP 6 mmol/L (8-16); ASPARTATE AMINOTRANSFERASE 15 U/L (15-37); BILIRUBIN,TOTAL 0.3 mg/dL (0.1-1.0); CALCIUM, TOTAL 8.6 mg/dL (8.8-10.5); CARBON DIOXIDE 29 mmol/L (22-29); CHLORIDE 108 mmol/L (98-107); CHOLESTEROL 143 mg/dL (131-200); CREATININE 0.64 mg/dL (0.60-1.30); FREE T4 (FREE THYROXINE) 0.84 ng/dL (0.76-1.46); GLOMERULAR FILTR. RATE CALC > 60 mL/min (>60); GLUCOSE,RANDOM 97 mg/dL (70-110); HDL CHOLESTEROL 47 mg/dL (40-60); LDL CHOL (CALC.) 66 mg/dL (0-130); POTASSIUM 3.9 mmol/L (3.5-5.1); SODIUM SERUM 143 mmol/L (136-145); THYROID STIMULATING HORMONE 1.05 uIU/mL (0.36-3.74); TOTAL PROTEIN, SERUM 7.2 g/dL (6.4-8.2); TRIGLYCERIDES 148 mg/dL (15-150); UREA NITROGEN, BLOOD 9 mg/dL (7-18)
[2024-07-31 20:22] VITALS: BP 135/69; PULSE 69; RESP 18; TEMP 97.5; O2SAT 97
[2024-08-01] MEDS: BuPROPion HCL XL 150 MG ER TABLET PO SCH (08:21)
[2024-08-01] MEDS: OLANZapine 5 MG RAPDIS TABLET PO PRN (08:21)
[2024-08-01] MEDS: NALTREXONE HCL 50 MG TABLET PO SCH (08:21)
[2024-08-01 08:33] VITALS: BP 141/89; PULSE 63; RESP 18; TEMP 97.5; O2SAT 99
[2024-08-01] MEDS ORDERED: PROMETHAZINE HCL 25 MG TABLET PO PRN (11:15)
[2024-08-01] MEDS ORDERED: LOPERAMIDE HCL 2 MG CAPSULE PO PRN (11:15)
[2024-08-01] MEDS ORDERED: HydrOXYzine PAMOATE 50 MG CAPSULE PO PRN (11:15)
[2024-08-01] MEDS ORDERED: MAGNESIUM HYDROXIDE SUSPENSION 30 ML UDCUP PO PRN (11:15)
[2024-08-01] MEDS ORDERED: GuaiFENesin/D-METHORPHAN [SUGAR-FREE] 200-20MG/10 ML SYRUP UDCUP PO PRN (11:15)
[2024-08-01] MEDS ORDERED: MAG HYDROX/ALUMINUM HYD/SIMETH ES 30 ML SUSPENSION UDCUP PO PRN (11:15)
[2024-08-01] MEDS: HALOPERIDOL DECANOATE 100 MG/ML VIAL IM ONE (17:23)
[2024-08-01] MEDS: THIAMINE 100 MG TABLET PO SCH (17:23)
[2024-08-01] MEDS ORDERED: MELATONIN 5 MG TABLET PO SCH (21:00)
[2024-08-01] MEDS: MELATONIN 5 MG TABLET PO SCH (21:15)
[2024-08-01] MEDS: HALOPERIDOL 10 MG TABLET PO SCH (21:58)
[2024-08-01 22:51] VITALS: BP 140/88; PULSE 86; RESP 18; TEMP 97.3; O2SAT 98
[2024-08-02 04:06] LABS: HEPATITIS C AB (EIA) Non Reactive (Non Reactive)
[2024-08-02 08:10] VITALS: BP 104/71; PULSE 82; RESP 16; TEMP 98.3; O2SAT 97
[2024-08-02] MEDS: MULTIVITAMINS WITH MINERALS, THERAPEUTIC TABLET PO SCH (08:20)
[2024-08-02] MEDS: BuPROPion HCL XL 150 MG ER TABLET PO SCH (08:20)
[2024-08-02] MEDS: NALTREXONE HCL 50 MG TABLET PO SCH (08:20)
[2024-08-02] MEDS: FOLIC ACID 1 MG TABLET PO SCH (10:06)
[2024-08-02 20:10] VITALS: BP 118/77; PULSE 62; RESP 16; TEMP 98.1; O2SAT 98
[2024-08-02] MEDS: HALOPERIDOL 10 MG TABLET PO SCH (20:33)
[2024-08-03] MEDS: BuPROPion HCL XL 150 MG ER TABLET PO SCH (07:55)
[2024-08-03 08:16] VITALS: RESP 17
[2024-08-03 20:55] VITALS: BP 102/68; PULSE 66; RESP 17; TEMP 97.6
[2024-08-04] MEDS: BuPROPion HCL XL 150 MG ER TABLET PO SCH (08:10)
[2024-08-04 08:15] VITALS: BP 106/68; PULSE 78; RESP 17; TEMP 98.5; O2SAT 96
[2024-08-04 20:03] VITALS: BP 94/57; PULSE 68; RESP 17; TEMP 98.1; O2SAT 98
[2024-08-04 20:43] VITALS: BP 108/77
[2024-08-05 04:55] VITALS: BP 125/81; RESP 18
[2024-08-05] MEDS: ACETAMINOPHEN 325 MG TABLET PO PRN (05:00)
[2024-08-05 08:19] VITALS: BP 108/58; PULSE 79; RESP 19; TEMP 97.8; O2SAT 98
[2024-08-05] MEDS: HALOPERIDOL 10 MG TABLET PO SCH (20:02)
[2024-08-05 23:44] VITALS: BP 104/62; PULSE 78; RESP 18; TEMP 97.7
[2024-08-06 08:30] VITALS: BP 132/93; PULSE 75; RESP 17; TEMP 97.3; O2SAT 97
[2024-08-06 20:36] VITALS: BP 112/62; PULSE 68; RESP 18; TEMP 96.8; O2SAT 96
[2024-08-07 08:18] VITALS: BP 117/79; PULSE 62; RESP 16; TEMP 97.5; O2SAT 100
[2024-08-07 22:29] VITALS: RESP 18
[2024-08-08 09:04] VITALS: BP 126/86; PULSE 72; RESP 18; TEMP 97.7; O2SAT 98
[2024-08-15] MEDS ORDERED: HALOPERIDOL DECANOATE 100 MG/ML VIAL IM SCH (09:00)
== END 2024-08-08 17:27 | disposition home or self-care (01) | DRG 750 ==
LOC: EMS 16:26 → B2S 07-31 01:15
PROVIDERS: ADMIT Psychiatry & Neurology Psychiatry; ATTEND Psychiatry & Neurology Psychiatry
PROC: GZ58ZZZ Individual Psychotherapy, Cognitive-Behavioral (ICD-10-PCS; principal; 2024-08-01)
PROC: GZHZZZZ Group Psychotherapy (ICD-10-PCS; 2024-08-01)
PROC: GZ56ZZZ Individual Psychotherapy, Supportive (ICD-10-PCS; 2024-08-02)
DX: F25.0 Schizoaffective disorder, bipolar type (principal); R45.851 Suicidal ideations; Z91.148 Patient's other noncompliance with medication regimen for other reason; F32.A Depression, unspecified; K21.9 Gastro-esophageal reflux disease without esophagitis; Z20.822 Contact with and (suspected) exposure to COVID-19; F15.20 Other stimulant dependence, uncomplicated; F41.9 Anxiety disorder, unspecified; F17.210 Nicotine dependence, cigarettes, uncomplicated; I10 Essential (primary) hypertension; J44.9 Chronic obstructive pulmonary disease, unspecified; Z56.0 Unemployment, unspecified; Z98.84 Bariatric surgery status; Z59.00 Homelessness unspecified
CPT/HCPCS: 80048; 80053; 80061; 80173; 83036; 84439; 84443; 85025; 86803; 87081; 87340; G0480; J1631

== ENCOUNTER 2024-08-12 09:13 | Emergency (ER) | payer MEDICAID, OTHER ==
[~2024-08-12] VITALS: Ht 154.9 cm; Wt 54.5 kg
[2024-08-12 09:24] VITALS: TEMP 98.3
[2024-08-12] MEDS: NEOMYCIN/POLYMYXIN B/HYDROCORT 10 ML OTIC SUSPENSION AD ONE (11:29)
[2024-08-12] MEDS: OXYMETAZOLINE HCL 0.05% 15 ML NASAL SPRAY NASAL ONE (11:29)
[2024-08-12 11:59] VITALS: BP 120/79; PULSE 73; RESP 16; O2SAT 96
== END 2024-08-12 12:00 | disposition home or self-care (01) ==
LOC: EMS 09:13
DX: H60.91 Unspecified otitis externa, right ear (principal); F20.9 Schizophrenia, unspecified; F32.A Depression, unspecified; F17.210 Nicotine dependence, cigarettes, uncomplicated; F15.90 Other stimulant use, unspecified, uncomplicated; Z59.00 Homelessness unspecified; Z79.899 Other long term (current) drug therapy; Z98.84 Bariatric surgery status
CPT/HCPCS: 99283

== ENCOUNTER 2024-08-19 10:50 | Emergency (ER) | payer OTHER ==
[~2024-08-19] VITALS: Ht 152.4 cm; Wt 54.5 kg
[2024-08-19 11:01] VITALS: BP 151/102; PULSE 75; RESP 16; TEMP 98.3; O2SAT 98
== END 2024-08-19 13:15 | disposition home or self-care (01) ==
LOC: EMS 11:12
DX: F25.1 Schizoaffective disorder, depressive type (principal); I10 Essential (primary) hypertension; K21.9 Gastro-esophageal reflux disease without esophagitis; F17.210 Nicotine dependence, cigarettes, uncomplicated; F15.90 Other stimulant use, unspecified, uncomplicated; Z59.00 Homelessness unspecified; Z79.899 Other long term (current) drug therapy
CPT/HCPCS: 99284; Z7502

== ENCOUNTER 2024-08-22 14:00 | Inpatient (IN) | payer MEDICAID ==
[~2024-08-22] VITALS: Ht 154.9 cm; Wt 57.2 kg
[~2024-08-22 14:00] MED LIST changes: -BUPR-514 PO; +BUPR-559 PO
[2024-08-22] MEDS ORDERED: LOPERAMIDE HCL 2 MG CAPSULE PO PRN (14:45)
[2024-08-22] MEDS ORDERED: OLANZapine 5 MG RAPDIS TABLET PO PRN (14:45)
[2024-08-22] MEDS ORDERED: QUEtiapine FUMARATE 100 MG TABLET PO PRN (14:45)
[2024-08-22] MEDS ORDERED: GuaiFENesin/D-METHORPHAN [SUGAR-FREE] 200-20MG/10 ML SYRUP UDCUP PO PRN (14:45)
[2024-08-22] MEDS ORDERED: HydrOXYzine PAMOATE 50 MG CAPSULE PO PRN (14:45)
[2024-08-22 15:45] LABS: GLUCOMETER DEV NAME(LOC) POC.BV; POC SARS-COV2 AG, FIA NEGATIVE (NEGATIVE)
[2024-08-22] MEDS: HALOPERIDOL DECANOATE 100 MG/ML VIAL IM ONE (16:21)
[2024-08-22] MEDS: THIAMINE 100 MG TABLET PO SCH (16:21)
[2024-08-22 18:29] VITALS: BP 142/88; PULSE 88; RESP 19; TEMP 98.6; O2SAT 99
[2024-08-22] MEDS ORDERED: -PHARMACY VACCINE NOTE- MISC ONE (20:00)
[2024-08-22] MEDS: MELATONIN 5 MG TABLET PO SCH (20:14)
[2024-08-22 20:29] VITALS: BP 156/96; PULSE 86; RESP 16; TEMP 98.5; O2SAT 97
[2024-08-22] MEDS: ZOLPIDEM TARTRATE 10 MG TABLET PO PRN (21:17)
[2024-08-23 08:19] VITALS: BP 107/70; PULSE 69; RESP 18; TEMP 97.7; O2SAT 100
[2024-08-23 08:39] LABS: BASOPHILS % (AUTO) 0.5 % (0.0-2.0); EOSINOPHILS % (AUTO) 0.9 % (1.0-6.0); HEMATOCRIT 38.2 % (36-46); HEMOGLOBIN 12.6 g/dL (12.0-16.0); LYMPHOCYTES # (AUTO) 1.2 K/uL (1.0-4.8); LYMPHOCYTES % (AUTO) 16.6 % (22.0-44.0); MEAN CORPUSCULAR HEMOGLOBIN 28.2 pg (26.0-34.0); MEAN CORPUSCULAR VOLUME 86 fL (80-100); MONOCYTES # (AUTO) 0.4 K/uL (0.1-1.0); MONOCYTES % (AUTO) 5.4 % (2.0-9.0); NEUTROPHILS # (AUTO) 5.3 K/uL (1.8-7.7); NEUTROPHILS % (AUTO) 76.6 % (40.0-70.0); PLATELET COUNT (AUTO) 336 K/uL (150-450); RED BLOOD CELL COUNT(AUTO) 4.46 MIL/uL (4.00-5.20); RED CELL DISTRIBUTION WIDTH 14.8 % (11.5-14.5)
[2024-08-23 08:57] LABS: ALANINE AMINOTRANSFERASE 17 U/L (12-78); ALBUMIN 3.6 g/dL (3.4-5.0); ALKALINE PHOSPHATASE 98 U/L (46-116); ANION GAP 8 mmol/L (8-16); ASPARTATE AMINOTRANSFERASE 16 U/L (15-37); BILIRUBIN,TOTAL 0.5 mg/dL (0.1-1.0); CALCIUM, TOTAL 8.9 mg/dL (8.8-10.5); CARBON DIOXIDE 29 mmol/L (22-29); CHLORIDE 103 mmol/L (98-107); CREATININE 0.71 mg/dL (0.60-1.30); GLOMERULAR FILTR. RATE CALC > 60 mL/min (>60); GLUCOSE,RANDOM 89 mg/dL (70-110); SODIUM SERUM 140 mmol/L (136-145); TOTAL PROTEIN, SERUM 8.2 g/dL (6.4-8.2); UREA NITROGEN, BLOOD 8 mg/dL (7-18)
[2024-08-23] MEDS: FOLIC ACID 1 MG TABLET PO SCH (10:13)
[2024-08-23] MEDS: NALTREXONE HCL 50 MG TABLET PO SCH (10:13)
[2024-08-23] MEDS: MULTIVITAMINS WITH MINERALS, THERAPEUTIC TABLET PO SCH (10:13)
[2024-08-23] MEDS: BuPROPion HCL XL 150 MG ER TABLET PO SCH (10:13)
[2024-08-23 20:18] VITALS: BP 117/82; PULSE 79; RESP 16; TEMP 97.5; O2SAT 97
[2024-08-24 08:10] VITALS: RESP 16
[2024-08-24] MEDS: HALOPERIDOL 10 MG TABLET PO SCH (20:28)
[2024-08-24 20:39] VITALS: BP 124/79; PULSE 74; RESP 13; TEMP 96.9; O2SAT 96
[2024-08-25] MEDS: FLUoxetine HCL 20 MG CAPSULE PO SCH (08:07)
[2024-08-25 08:12] VITALS: BP 130/68; PULSE 78; RESP 16; TEMP 97.6; O2SAT 96
[2024-08-25 09:04] LABS: AMPHET/METH SCREEN,URINE POSITIVE (NEGATIVE); BARBITURATE SCREEN, URINE NEGATIVE (NEGATIVE); BENZODIAZEPINES SCREEN,URINE NEGATIVE (NEGATIVE); CANNABINOID SCREEN,URINE NEGATIVE (NEGATIVE); COCAINE SCREEN,URINE NEGATIVE (NEGATIVE); METHADONE SCREEN, URINE NEGATIVE (NEGATIVE); OPIATE SCREEN,URINE NEGATIVE (NEGATIVE); PHENCYCLIDINE SCREEN,URINE NEGATIVE (NEGATIVE)
[2024-08-25 09:05] LABS: ALCOHOL, URINE DRUG SCREEN NEGATIVE (NEGATIVE)
[2024-08-25 20:06] VITALS: BP 135/96; PULSE 80; RESP 18; TEMP 97.6; O2SAT 96
[2024-08-26] MEDS: FLUoxetine HCL 10 MG CAPSULE PO SCH (08:10)
[2024-08-26 08:11] VITALS: BP 126/74; PULSE 69; RESP 16; TEMP 97.8; O2SAT 96
[2024-08-26] MEDS: LORazepam 2 MG TABLET PO PRN (12:39)
[2024-08-26] MEDS ORDERED: ESZOPICLONE 3 MG TABLET PO PRN (17:30)
[2024-08-26] MEDS ORDERED: GABAPENTIN 300 MG CAPSULE PO PRN (17:30)
[2024-08-26 20:18] VITALS: BP 104/61; PULSE 66; RESP 18; TEMP 97.2; O2SAT 93
[2024-08-27 08:06] VITALS: BP 107/60; PULSE 77; RESP 18; TEMP 98; O2SAT 98
[2024-08-27] MEDS: FLUoxetine HCL 20 MG CAPSULE PO SCH (08:16)
[2024-08-27 20:23] VITALS: RESP 16
[2024-08-28 08:24] VITALS: BP 103/62; PULSE 74; RESP 16; TEMP 98; O2SAT 96
[2024-08-28 20:09] VITALS: BP 134/83; PULSE 68; RESP 16; TEMP 97.3; O2SAT 96
[2024-08-29 08:19] VITALS: BP 134/86; PULSE 77; RESP 16; TEMP 96.6; O2SAT 96
[2024-08-29] MEDS: OLANZapine 5 MG RAPDIS TABLET PO PRN (12:38)
[2024-08-29 20:17] VITALS: BP 114/74; PULSE 60; RESP 17; TEMP 97.4; O2SAT 97
[2024-08-30] MEDS: FLUoxetine HCL 20 MG CAPSULE PO SCH (08:13)
[2024-08-30 08:22] VITALS: BP 126/71; PULSE 72; RESP 16; TEMP 96.8; O2SAT 96
[2024-08-30 20:30] VITALS: BP 121/78; PULSE 95; RESP 16; TEMP 98.5; O2SAT 98
[2024-08-31 08:39] VITALS: BP 121/69; PULSE 66; RESP 16; TEMP 98.6; O2SAT 97
[2024-08-31 20:33] VITALS: BP 117/70; PULSE 64; RESP 16; TEMP 97.5; O2SAT 97
[2024-09-01 08:18] VITALS: BP 116/71; PULSE 66; RESP 16; TEMP 97.6; O2SAT 99
[2024-09-01] MEDS: FLUoxetine HCL 20 MG CAPSULE PO SCH (08:50)
[2024-09-01] MEDS ORDERED: GABAPENTIN 300 MG CAPSULE PO PRN (17:30)
[2024-09-01 21:30] VITALS: BP 128/75; PULSE 100; RESP 16; TEMP 98; O2SAT 95
[2024-09-02] MEDS: BuPROPion HCL XL 150 MG ER TABLET PO SCH (08:08)
[2024-09-02] MEDS: FLUoxetine HCL 20 MG CAPSULE PO SCH (08:09)
[2024-09-02 09:52] VITALS: BP 111/70; PULSE 77; RESP 17; TEMP 97.7; O2SAT 98
[2024-09-02] MEDS ORDERED: FLUO-418 PO (14:33)
[2024-09-02] MEDS ORDERED: BUPR-49 PO (14:33)
[2024-09-02] MEDS ORDERED: HALO10TA21 PO (15:06)
[2024-09-02] MEDS ORDERED: FLUO20SO24 PO (15:07)
[2024-09-02] MEDS ORDERED: BUPR-559 PO (15:08)
[2024-09-02] MEDS ORDERED: BUPR450T5 PO (15:08)
[2024-09-02] MEDS ORDERED: GABA-1181 PO (15:12)
[2024-09-02] MEDS ORDERED: ESZO3TAB53 PO (15:13)
[2024-09-02] MEDS ORDERED: OLAN5TAB94 PO (15:14)
[2024-09-05] MEDS ORDERED: HALOPERIDOL DECANOATE 100 MG/ML VIAL IM SCH (09:00)
== END 2024-09-02 16:28 | disposition home or self-care (01) | DRG 750 ==
LOC: B3A 14:47
PROVIDERS: ADMIT Psychiatry & Neurology Psychiatry; ATTEND Psychiatry & Neurology Psychiatry
PROC: GZ58ZZZ Individual Psychotherapy, Cognitive-Behavioral (ICD-10-PCS; principal; 2024-08-22)
PROC: GZ56ZZZ Individual Psychotherapy, Supportive (ICD-10-PCS; 2024-08-22)
PROC: GZHZZZZ Group Psychotherapy (ICD-10-PCS; 2024-08-22)
DX: F25.0 Schizoaffective disorder, bipolar type (principal); F41.9 Anxiety disorder, unspecified; Z20.822 Contact with and (suspected) exposure to COVID-19; F60.0 Paranoid personality disorder; G47.00 Insomnia, unspecified; J44.9 Chronic obstructive pulmonary disease, unspecified; Z60.8 Other problems related to social environment; K21.9 Gastro-esophageal reflux disease without esophagitis; Z55.9 Problems related to education and literacy, unspecified; Z59.9 Problem related to housing and economic circumstances, unspecified; Z63.9 Problem related to primary support group, unspecified; Z65.3 Problems related to other legal circumstances; Z79.899 Other long term (current) drug therapy; Z81.8 Family history of other mental and behavioral disorders; Z98.84 Bariatric surgery status
CPT/HCPCS: 80053; 80173; 80307; 85025; J1631

== ENCOUNTER 2024-09-21 12:54 | Emergency (ER) | payer MEDICAID, OTHER ==
[~2024-09-21] VITALS: Ht 160 cm; Wt 63.6 kg
[~2024-09-21 12:54] MED LIST changes: +BUPR-49 PO; +ESZO3TAB53 PO; +FLUO-418 PO; +FLUO20SO24 PO; +GABA-1181 PO; +OLAN5TAB94 PO
[2024-09-21 12:57] VITALS: BP 142/95; PULSE 80; RESP 18; TEMP 97.6; O2SAT 98
[2024-09-21 17:07] LABS: BASOPHILS % (AUTO) 0.5 % (0.0-2.0); EOSINOPHILS % (AUTO) 1.4 % (1.0-6.0); HEMATOCRIT 36.6 % (36-46); HEMOGLOBIN 12.1 g/dL (12.0-16.0); LYMPHOCYTES # (AUTO) 1.5 K/uL (1.0-4.8); LYMPHOCYTES % (AUTO) 21.1 % (22.0-44.0); MEAN CORPUSCULAR HEMOGLOBIN 28.8 pg (26.0-34.0); MEAN CORPUSCULAR HGB CONC 33.1 G/dL (31.0-37.0); MEAN CORPUSCULAR VOLUME 87 fL (80-100); MONOCYTES # (AUTO) 0.4 K/uL (0.1-1.0); MONOCYTES % (AUTO) 5.7 % (2.0-9.0); NEUTROPHILS # (AUTO) 4.9 K/uL (1.8-7.7); NEUTROPHILS % (AUTO) 71.3 % (40.0-70.0); PLATELET COUNT (AUTO) 294 K/uL (150-450); RED BLOOD CELL COUNT(AUTO) 4.21 MIL/uL (4.00-5.20); RED CELL DISTRIBUTION WIDTH 13.7 % (11.5-14.5); WHITE BLOOD COUNT (AUTO) 6.9 K/uL (4.5-11.0)
[2024-09-21] MEDS: ACETAMINOPHEN 325 MG TABLET PO ONE (17:11)
[2024-09-21 17:13] LABS: ANION GAP 11 mmol/L (8-16); CARBON DIOXIDE 26 mmol/L (22-29); CHLORIDE 105 mmol/L (98-107); CREATININE 0.58 mg/dL (0.60-1.30); GLOMERULAR FILTR. RATE CALC > 60 mL/min (>60); GLUCOSE,RANDOM 93 mg/dL (70-110); POTASSIUM 3.6 mmol/L (3.5-5.1); SODIUM SERUM 142 mmol/L (136-145); UREA NITROGEN, BLOOD 12 mg/dL (7-18)
[2024-09-21 17:18] LABS: ALCOHOL, BLOOD (SERUM) < 3 mg/dL (0-10)
== END 2024-09-21 22:43 | disposition home or self-care (01) ==
LOC: EMS 13:49
DX: R51.9 Headache, unspecified (principal); R42 Dizziness and giddiness; K21.9 Gastro-esophageal reflux disease without esophagitis; F17.210 Nicotine dependence, cigarettes, uncomplicated; I10 Essential (primary) hypertension; Z59.00 Homelessness unspecified; Z79.899 Other long term (current) drug therapy
CPT/HCPCS: 99283; 80048; 85025; 36415; G0480

== ENCOUNTER 2024-09-25 18:02 | Inpatient (IN) | payer MEDICAID, OTHER ==
[~2024-09-25] VITALS: Ht 154.9 cm; Wt 53.1 kg
[~2024-09-25 18:02] MED LIST changes: +BUPR-50 PO; -BUPR-559 PO
[2024-09-25 18:30] LABS: COVID AG,FIA SOURCE NASAL SWAB
[2024-09-25 18:31] LABS: BASOPHILS % (AUTO) 0.8 % (0.0-2.0); EOSINOPHILS % (AUTO) 1.1 % (1.0-6.0); HEMATOCRIT 37.7 % (36-46); HEMOGLOBIN 12.4 g/dL (12.0-16.0); LYMPHOCYTES # (AUTO) 1.5 K/uL (1.0-4.8); LYMPHOCYTES % (AUTO) 19.9 % (22.0-44.0); MEAN CORPUSCULAR HEMOGLOBIN 28.2 pg (26.0-34.0); MEAN CORPUSCULAR VOLUME 86 fL (80-100); MONOCYTES # (AUTO) 0.5 K/uL (0.1-1.0); MONOCYTES % (AUTO) 6.2 % (2.0-9.0); NEUTROPHILS # (AUTO) 5.5 K/uL (1.8-7.7); PLATELET COUNT (AUTO) 374 K/uL (150-450); RED CELL DISTRIBUTION WIDTH 13.8 % (11.5-14.5); WHITE BLOOD COUNT (AUTO) 7.6 K/uL (4.5-11.0)
[2024-09-25 18:40] LABS: ANION GAP 10 mmol/L (8-16); CALCIUM, TOTAL 8.8 mg/dL (8.8-10.5); CARBON DIOXIDE 28 mmol/L (22-29); CHLORIDE 102 mmol/L (98-107); CREATININE 0.68 mg/dL (0.60-1.30); GLOMERULAR FILTR. RATE CALC > 60 mL/min (>60); GLUCOSE,RANDOM 124 mg/dL (70-110); POTASSIUM 3.6 mmol/L (3.5-5.1); SODIUM SERUM 140 mmol/L (136-145); UREA NITROGEN, BLOOD 14 mg/dL (7-18)
[2024-09-25] MEDS ORDERED: LORazepam 2 MG TABLET PO PRN (18:45)
[2024-09-25 18:49] LABS: ALCOHOL, BLOOD (SERUM) < 3 mg/dL (0-10)
[2024-09-25 18:50] LABS: SARS-COV2 (COVID) ANTIGEN,FIA Negative (Negative)
[2024-09-25] MEDS: HALOPERIDOL 5 MG TABLET PO PRN (19:47)
[2024-09-25 21:25] VITALS: O2SAT 98
[2024-09-25] MEDS: ZOLPIDEM TARTRATE 10 MG TABLET PO PRN (23:51)
[2024-09-26 00:30] VITALS: BP 152/87; PULSE 69; RESP 18; TEMP 97.3; O2SAT 100
[2024-09-26 07:37] LABS: HEMOGLOBIN A1C 5.7 % (3.8-5.6)
[2024-09-26 07:45] LABS: CHOL/HDL RATIO 3.4 (3.9-5.7); FREE T4 (FREE THYROXINE) 0.87 ng/dL (0.76-1.46); THYROID STIMULATING HORMONE 0.94 uIU/mL (0.36-3.74)
[2024-09-26 08:42] VITALS: BP 123/77; PULSE 80; RESP 16; TEMP 98.7; O2SAT 97
[2024-09-26] MEDS ORDERED: ESZOPICLONE 3 MG TABLET PO PRN (11:00)
[2024-09-26] MEDS ORDERED: LOPERAMIDE HCL 2 MG CAPSULE PO PRN (11:00)
[2024-09-26] MEDS ORDERED: GuaiFENesin/D-METHORPHAN [SUGAR-FREE] 200-20MG/10 ML SYRUP UDCUP PO PRN (11:00)
[2024-09-26] MEDS ORDERED: PROMETHAZINE HCL 25 MG TABLET PO PRN (11:00)
[2024-09-26] MEDS: HALOPERIDOL DECANOATE 100 MG/ML VIAL IM ONE (12:54)
[2024-09-26] MEDS: MAG HYDROX/ALUMINUM HYD/SIMETH ES 30 ML SUSPENSION UDCUP PO PRN (12:54)
[2024-09-26] MEDS: MAGNESIUM HYDROXIDE SUSPENSION 30 ML UDCUP PO PRN (13:26)
[2024-09-26] MEDS: HydrOXYzine PAMOATE 50 MG CAPSULE PO PRN (14:02)
[2024-09-26] MEDS: THIAMINE 100 MG TABLET PO SCH (16:17)
[2024-09-26] MEDS ORDERED: DOCUSATE CALCIUM 240 MG CAPSULE PO PRN (18:45)
[2024-09-26 20:00] VITALS: BP 132/73; PULSE 70; RESP 17; TEMP 97.7; O2SAT 100
[2024-09-26] MEDS: MELATONIN 5 MG TABLET PO SCH (20:06)
[2024-09-26] MEDS: HALOPERIDOL 10 MG TABLET PO SCH (20:07)
[2024-09-27 08:07] LABS: HEPATITIS C AB (EIA) Non Reactive (Non Reactive)
[2024-09-27] MEDS: FOLIC ACID 1 MG TABLET PO SCH (08:39)
[2024-09-27] MEDS: OMEGA-3/DHA/EPA/FISH OIL 1,000 MG CAPSULE PO SCH (08:39)
[2024-09-27] MEDS: MULTIVITAMINS WITH MINERALS, THERAPEUTIC TABLET PO SCH (08:39)
[2024-09-27] MEDS: BuPROPion HCL XL 150 MG ER TABLET PO SCH (08:40)
[2024-09-27] MEDS: NALTREXONE HCL 50 MG TABLET PO SCH (08:40)
[2024-09-27] MEDS: FLUoxetine HCL 20 MG CAPSULE PO SCH (08:40)
[2024-09-27 08:50] LABS: CHOL/HDL RATIO 3.4 (3.9-5.7)
[2024-09-27 09:04] VITALS: BP 104/71; PULSE 72; RESP 16; TEMP 98; O2SAT 96
[2024-09-27 10:37] VITALS: BP 135/88
[2024-09-27] MEDS: ACETAMINOPHEN 325 MG TABLET PO PRN (13:24)
[2024-09-27 13:30] VITALS: RESP 16; O2SAT 96
[2024-09-27 14:30] VITALS: RESP 16; O2SAT 96
[2024-09-27] MEDS: GABAPENTIN 300 MG CAPSULE PO PRN (15:49)
[2024-09-27 20:37] VITALS: BP 110/71; PULSE 66; RESP 16; TEMP 98.3; O2SAT 98
[2024-09-28] MEDS: HALOPERIDOL 10 MG TABLET PO SCH (21:13)
[2024-09-28 21:27] VITALS: BP 114/77; PULSE 69; RESP 16; TEMP 97.7; O2SAT 97
[2024-09-29 07:45] VITALS: BP 121/84; PULSE 82; RESP 18; TEMP 97.3; O2SAT 95
[2024-09-29] MEDS: FLUoxetine HCL 20 MG CAPSULE PO SCH (10:21)
[2024-09-29 20:33] VITALS: BP 101/65; PULSE 64; RESP 16; TEMP 98; O2SAT 97
[2024-09-30] MEDS: BuPROPion HCL XL 150 MG ER TABLET PO SCH (08:21)
[2024-09-30 08:35] VITALS: BP 118/75; PULSE 67; RESP 19; TEMP 97.5; O2SAT 98
[2024-09-30 20:21] VITALS: BP 133/80; PULSE 65; RESP 18; TEMP 97.5; O2SAT 99
[2024-10-01] MEDS: FLUoxetine HCL 20 MG CAPSULE PO SCH (08:14)
[2024-10-01 09:07] VITALS: BP 129/88; PULSE 75; RESP 18; TEMP 96.9; O2SAT 99
[2024-10-01 15:08] VITALS: RESP 18
[2024-10-01 16:08] VITALS: RESP 17
[2024-10-01 20:38] VITALS: BP 114/73; PULSE 68; RESP 17; TEMP 98.5
[2024-10-02 09:15] VITALS: BP 100/62; PULSE 64; RESP 18; TEMP 97.9; O2SAT 98
[2024-10-02 21:57] VITALS: BP 105/67; PULSE 70; RESP 18; TEMP 97.3; O2SAT 99
[2024-10-03 08:55] VITALS: BP 105/66; PULSE 67; RESP 15; TEMP 97.5; O2SAT 96
[2024-10-03 14:19] VITALS: RESP 16
[2024-10-03] MEDS: OLANZapine 5 MG TABLET PO SCH (14:19)
[2024-10-03 15:19] VITALS: RESP 16
[2024-10-03 20:50] VITALS: BP 113/69; PULSE 66; RESP 16; TEMP 97.9; O2SAT 95
[2024-10-04 20:40] VITALS: BP 117/70; PULSE 78; RESP 16; TEMP 97.8; O2SAT 99
[2024-10-05 08:54] VITALS: BP 99/62; PULSE 63; RESP 17; TEMP 98.1; O2SAT 96
[2024-10-05 20:55] VITALS: BP 110/65; PULSE 100; RESP 16; TEMP 98.3; O2SAT 98
[2024-10-06 09:30] VITALS: BP 120/65; PULSE 62; RESP 16; TEMP 96.5; O2SAT 99
[2024-10-06 21:02] VITALS: BP 113/77; PULSE 66; RESP 16; TEMP 96.7; O2SAT 97
[2024-10-07 08:55] VITALS: BP 150/98; PULSE 82; RESP 17; TEMP 97.6; O2SAT 100
[2024-10-07] MEDS ORDERED: FLUO-418 PO (09:05)
[2024-10-07] MEDS ORDERED: OLAN5TAB52 PO (10:27)
[2024-10-07] MEDS ORDERED: OMEG100033 PO (10:29)
[2024-10-10] MEDS ORDERED: HALOPERIDOL DECANOATE 100 MG/ML VIAL IM SCH (09:00)
== END 2024-10-07 14:11 | disposition home or self-care (01) | DRG 750 ==
LOC: EMS 18:10 → B2S 22:45 → UNDOADMIN 22:45
PROVIDERS: ADMIT Psychiatry & Neurology Psychiatry; ATTEND Psychiatry & Neurology Psychiatry
PROC: GZHZZZZ Group Psychotherapy (ICD-10-PCS; principal; 2024-09-26)
PROC: GZ51ZZZ Individual Psychotherapy, Behavioral (ICD-10-PCS; 2024-09-26)
PROC: GZ56ZZZ Individual Psychotherapy, Supportive (ICD-10-PCS; 2024-09-26)
PROC: GZ58ZZZ Individual Psychotherapy, Cognitive-Behavioral (ICD-10-PCS; 2024-09-26)
DX: F25.9 Schizoaffective disorder, unspecified (principal); R45.851 Suicidal ideations; Z91.148 Patient's other noncompliance with medication regimen for other reason; E73.9 Lactose intolerance, unspecified; I10 Essential (primary) hypertension; F15.10 Other stimulant abuse, uncomplicated; Z20.822 Contact with and (suspected) exposure to COVID-19; F17.210 Nicotine dependence, cigarettes, uncomplicated; J44.9 Chronic obstructive pulmonary disease, unspecified; K21.9 Gastro-esophageal reflux disease without esophagitis; Z79.899 Other long term (current) drug therapy; Z59.00 Homelessness unspecified; Z98.84 Bariatric surgery status
CPT/HCPCS: 80048; 80061; 80173; 83036; 84439; 84443; 85025; 86592; 86803; 87081; 87340; 99285; G0480; J1631

== ENCOUNTER 2024-11-20 12:42 | Emergency (ER) | payer MEDICAID, OTHER ==
[~2024-11-20] VITALS: Ht 157.5 cm; Wt 60.0 kg
[~2024-11-20 12:42] MED LIST changes: -BUPR-49 PO; -ESZO3TAB53 PO; -FLUO20SO24 PO; -GABA-1181 PO; +OLAN5TAB52 PO; -OLAN5TAB94 PO; +OMEG100033 PO
[2024-11-20 12:44] VITALS: TEMP 97.2
[2024-11-20] MEDS: LORazepam 1 MG TABLET PO ONE (14:23)
[2024-11-20] MEDS ORDERED: NALT50TA33 PO (14:39)
[2024-11-20] MEDS ORDERED: OLAN5TAB52 PO (14:39)
[2024-11-20] MEDS ORDERED: HALO10TA21 PO (14:39)
[2024-11-20] MEDS ORDERED: BUPR-50 PO (14:39)
[2024-11-20] MEDS ORDERED: FLUO-418 PO (14:39)
[2024-11-20] MEDS: NALTREXONE HCL 50 MG TABLET PO ONE (15:14)
[2024-11-20] MEDS: OLANZapine 10 MG TABLET PO ONE (15:14)
[2024-11-20] MEDS: BuPROPion HCL XL 150 MG ER TABLET PO ONE (15:15)
[2024-11-20] MEDS: FLUoxetine HCL 20 MG CAPSULE PO ONE (15:15)
[2024-11-20 15:30] VITALS: BP 138/82; PULSE 78; RESP 16; O2SAT 99
== END 2024-11-20 15:30 | disposition home or self-care (01) ==
LOC: EMS 12:42
DX: F41.0 Panic disorder [episodic paroxysmal anxiety] (principal); I10 Essential (primary) hypertension; F20.9 Schizophrenia, unspecified; F17.210 Nicotine dependence, cigarettes, uncomplicated; F15.10 Other stimulant abuse, uncomplicated; K21.9 Gastro-esophageal reflux disease without esophagitis; Z59.00 Homelessness unspecified; Z79.899 Other long term (current) drug therapy
CPT/HCPCS: 99284; Z7502; Z7610